=== PATIENT | female | born 1930 | race Caucasian/White ===

== ENCOUNTER → 2017-07-28 | Outpatient (CLI) | payer OTHER ==
[~2017-07-28] MED LIST: ASPI325EC PO; Calcium 600 +1 EAC1 PO; Dyazide 37.5-21 EACH PO; HYDR1TAB94 PO; PROM25 PO; VITAMIN D32000 UNIT PO; [UNRECOGNIZED DRUG - OTHER]
== END ==
LOC: PLD 14:09 → LAB SHORT 14:09
DX: D48.5 Neoplasm of uncertain behavior of skin (principal)
CPT/HCPCS: 88305

== ENCOUNTER → 2017-12-29 | Outpatient (CLI) | payer OTHER | END | disposition home or self-care (01) | LOC: LAB SHORT 07:48 → PLD 07:48 | DX: D22.62 Melanocytic nevi of left upper limb, including shoulder (principal) | CPT/HCPCS: 88305 ==

== ENCOUNTER → 2018-06-22 | Outpatient (CLI) | payer OTHER | END | disposition home or self-care (01) | LOC: PLD 08:45 → LAB SHORT 08:45 | DX: D22.39 Melanocytic nevi of other parts of face (principal) | CPT/HCPCS: 88305 ==